=== PATIENT | female | born 1985 | race Caucasian/White ===

== ENCOUNTER 2021-09-06 15:04 | Emergency (ER) | payer OTHER ==
[~2021-09-06] VITALS: Ht 157.5 cm; Wt 88.9 kg
[~2021-09-06 15:04] MED LIST: FEOSOL325 MG PO; NORCO 5-325 TA1 EACH PO; PRENATAL VITAM1 EAC8 PO; ZANTAC150 MG PO
== END 2021-09-06 18:55 | disposition home or self-care (01) ==
LOC: ER1 15:04
DX: U07.1 COVID-19 (principal); J45.909 Unspecified asthma, uncomplicated; Z23 Encounter for immunization
CPT/HCPCS: 99283; M0245